=== PATIENT | female | born 1975 | race Caucasian/White ===

== ENCOUNTER → 2019-06-02 13:14 | Outpatient (CLI) | payer OTHER, SELFPAY ==
--- NOTE | ~2019-06-02 | MM_ITS ---
EXAMINATION: MM screening graham BI w bebe HISTORY: Screening mammogram TECHNIQUE: Craniocaudal and mediolateral oblique 3-D tomosynthesis images were obtained and synthetic 2-D images were generated. CAD analysis was submitted and interpreted. COMPARISON: 12/18/2013 bilateral digital screening mammogram BREAST PARENCHYMAL COMPOSITION: There are scattered areas of fibroglandular density. FINDINGS: There is no evidence of suspicious mass, calcification, or architectural distortion to sugg est malignancy in either breast. There has been no suspicious interval change. IMPRESSION: 1. No mammographic evidence of malignancy. 2. Recommend routine screening mammography in one year. BI-RADS Category 1: Negative Reviewed, dictated and finalized at location A.
== END ==
PROVIDERS: PCP Internal Medicine; Visit Provider Internal Medicine
DX: Z12.31 Encounter for screening mammogram for malignant neoplasm of breast (principal)
CPT/HCPCS: 77063; 77067

== ENCOUNTER 2019-07-05 15:08 | Outpatient (CLI) | payer OTHER, SELFPAY ==
[2019-07-05 15:27] LABS: Basophils Percent Auto 0.5 % (0.2-1.2); Eosinophils Absolute Auto 0.1 K/mm3 (0-0.3); Eosinophils Percent Auto 1.3 % (0-4.4); Hematocrit 36.5 % (37.0-47.0); Hemoglobin 11.8 g/dL (12.0-15.0); Immature Granulocyte Absolute 0.04 K/mm3 (0.00-0.031); Immature Granulocyte Percent A 0.5 % (0-0.5); Immature Reticulocyte Fraction 12.3 % (3.0-15.9); Lymphocytes Absolute Auto 2.07 K/mm3 (0.9-3.2); Lymphocytes Percent Auto 24.2 % (18.3-44.2); Mean Corpuscular HGB Conc 32.3 g/dl (32-36); Mean Corpuscular Hemoglobin 29.5 pg (26-34); Mean Corpuscular Volume 91.3 fl (80-100); Mean Platelet Volume 10.2 fl (7.4-10.4); Monocytes Absolute Auto 0.5 K/mm3 (0.1-0.6); Monocytes Percent Auto 6.3 % (2.6-8.5); Neutrophils Absolute Auto 5.8 K/mm3 (1.3-6.7); Neutrophils Percent Auto 67.2 % (45.5-73.1); Platelet Count Result 273 k/mm3 (150-375); Red Cell Distribution Width 15.5 % (11.5-14.5); Reticulocyte Hemoglobin Conten 34.6 pg (28.2-35.7); Reticulocyte Percent 1.77 % (0.7-4.3); Reticulocytes Absolute 0.07 B/L (32.2-175.7); White Blood Count 8.6 K/mm3 (4.5-10.0)
[2019-07-05 16:18] LABS: Iron 49 ug/dL (37-170)
[2019-07-05 16:22] LABS: Blood Urea Nitrogen 14 mg/dL (7-17); Calcium 9.4 mg/dL (8.4-10.2); Carbon Dioxide 24 mmol/L (22-30); Chloride 105 mmol/L (98-107); Estimated Glomerular Filt Rate > 60; Glucose 96 mg/dL (65-105); Potassium 4.6 mmol/L (3.4-5.0); Sodium 138 mmol/L (137-145)
[2019-07-05 16:33] LABS: Percent Iron Saturation 11 % (20-50)
== END 2019-07-05 15:09 | disposition home or self-care (01) ==
LOC: ANHLAB 15:10
PROVIDERS: PCP Internal Medicine; Visit Provider Internal Medicine Hematology & Oncology
DX: D50.0 Iron deficiency anemia secondary to blood loss (chronic) (principal)
CPT/HCPCS: 36415; 80048; 82607; 82728; 83540; 83550; 85025; 85046

== ENCOUNTER 2020-02-22 13:44 | Outpatient (CLI) | payer OTHER, SELFPAY ==
--- NOTE | ~2020-02-22 | US_ITS ---
EXAMINATION: US pelvic complete w TV DATE: 02/22/2020 15:10 INDICATION: Fibroids. Menorrhagia. Enlarged uterus. Comparison:No prior studies for comparison. TECHNIQUE: Multiple transabdominal and endovaginal sonographic images of the pelvis performed. FINDINGS: The uterus measures 15.4 x 10.4 x 11.7 cm. There are multiple ill-defined masses of the tevin bob, consistent with fibroids. Largest discrete fibroid measures 5.5 cm maximum dimension. The endome trial complex measures 1.5 cm. The ovaries are not visualized. There is no free fluid in the pelvis. There are no abnormal masses seen on either side. IMPRESSION: 1. Enlarged uterus containing multiple fibroids. 2: Endometrial thickening measuring 1.5 cm. Reviewed, dictated and finalized at location A. R TREATMENT PLANT REPAIRER
== END 2020-02-22 13:45 ==
PROVIDERS: Visit Provider Obstetrics & Gynecology
DX: D25.9 Leiomyoma of uterus, unspecified (principal); N92.0 Excessive and frequent menstruation with regular cycle
CPT/HCPCS: 76830; 76856

== ENCOUNTER 2020-04-09 00:36 | Outpatient (CLI) | payer OTHER, SELFPAY ==
[2020-04-09 19:18] LABS: SARS-CoV-2 RNA PCR Negative
== END 2020-04-09 00:37 | disposition home or self-care (01) ==
LOC: ANHCOVIDDT 00:36
PROVIDERS: PCP Internal Medicine; Visit Provider Obstetrics & Gynecology
DX: Z01.812 Encounter for preprocedural laboratory examination (principal); Z20.822 Contact with and (suspected) exposure to COVID-19
CPT/HCPCS: C9803; U0003; U0005

== ENCOUNTER 2020-04-10 11:34 | Outpatient (CLI) | payer OTHER, SELFPAY ==
--- NOTE | 2020-04-10 11:35 | ECG_ITS ---
Measurements Intervals [place] Rate: 76 P: 44 UT: 156 QRS: 37 QRSD: 92 T: 0 QT: 369 QTc: 416 Interpretive Statements SINUS RHYTHM DELAYED PRECORDIAL R/S TRANSITION BORDERLINE ST-T WAVE ABNORMALITY- ANT/INF LEADS BASELINE ARTIFACT- I, II, AVR, AVL BORDERLINE ECG Electronically Signed On 04-10-2020 12:05:25 PROJECT RESERVOIR ENGINEER by Ismael Oropeza D.O.
[2020-04-10 12:44] LABS: Hematocrit 36.6 % (37.0-47.0); Hemoglobin 11.6 g/dL (12.0-15.0)
== END 2020-04-10 11:35 | disposition home or self-care (01) ==
LOC: ANHSURGERY 11:35
PROVIDERS: Anesthesiology; PCP Internal Medicine; Visit Provider Obstetrics & Gynecology
DX: Z01.818 Encounter for other preprocedural examination (principal); D25.9 Leiomyoma of uterus, unspecified; D64.9 Anemia, unspecified; E78.00 Pure hypercholesterolemia, unspecified
CPT/HCPCS: 36415; 85014; 85018; 86850; 86900; 86901; 93005

== ENCOUNTER 2020-04-12 09:10 | Inpatient (IN) | payer OTHER, SELFPAY ==
[2020-04-09 14:56] VITALS: BMI 43.8
[2020-04-12] VITALS (16 sets, daily range): BP systolic 123–145; BP diastolic 61–88; PULSE 59–81; RESP 12–29; TEMP 36.2–37.1; O2SAT 94–100
--- NOTE | 2020-04-12 10:13 | PM.IMHP ---
H&P: HPI History of Present Illness Date/Time: 04/12/20 10:13 Chief Complaint: heavy cycles and pain Narrative: Amaris Ravi is a 44 year old female with history of heavy menstrual cycle. Patient underwent ultrasound consistent with muultiple uterine fibroids. Patient alos reportts increased pressure and pain in pelvis. Patient s/pbladder sling and vaginal repain in 11/25. PMFSH Past Medical History Medical History (Updated 04/12/20 @ 10:19 by Jose Taylor MD) Fibroids Surgical History Surgical History (Updated 04/12/20 @ 10:18 by Jose Taylor MD) History of bilateral tubal ligation History of bladder suspension procedure Social History Social History Smoking packs per day: 1 Smoking cigarettes per day: 20.0 Years smoked: 13 Smoking pack-years: 13.00 Smoking status: Current every day smoker Tobacco type: cigarettes Living arrangements: with family Spiritual care concerns: No Meds Home Medications and Allergies Home Medications Medication Instructions Recorded Confirmed Type ferrous sulfate 325 mg PO DAILY 04/09/20 04/09/20 History loratadine 10 mg PO DAILY PRN 04/09/20 04/09/20 History rosuvastatin 20 mg PO HS 04/09/20 04/09/20 History Allergies Allergy/AdvReac Type Severity Reaction Status Date / Time No Known Allergies Allergy Unknown Verified 04/09/20 14:54 Exam Const: General: cooperative Resp: Effort & Inspection: normal respiratory effort GI: Inspection: normal to inspection Other: palpable uterus above pubic bone Assessment and Plan Assessment and plan (1) History of bladder suspension procedure: Code(s): Z98.890 - Other specified postprocedural states; Z87.448 - Personal history of other diseases of urinary system Status: Acute Assessment and Plan: Scheduled for a total abdiminal hysterectomy. Risk and benefits reviewd with patient. (2) History of bilateral tubal ligation: Code(s): Z98.51 - Tubal ligation status Status: Acute (3) Fibroids: Code(s): D21.9 - Benign neoplasm of connective and other soft tissue, unspecified Status: Acute
[2020-04-12] MEDS: LACTATED RINGERS 1,000 ML 30 ML IV CONT ×3 (10:57→14:17)
--- NOTE | 2020-04-12 11:39 | WPDANESEPPF ---
Anes - Initial Pre Proc Eval Procedure: Operation Date: 04/12/20 12:00 Proposed Procedures p Total Abdominal Hysterectomy - Jose Taylor MD Date/Time: 04/12/20 11:39 Surgeon: Jose Taylor MD Pre Op Diagnosis: Fibroids Patient Data Age: 44 Gender: F Height: 5 ft 4 in Weight: 115.9 kg Allergies Allergy/AdvReac Type Severity Reaction Status Date / Time No Known Allergies Allergy Unknown Verified 04/09/20 14:54 Home Medications Medication Instructions Recorded Confirmed Type ferrous sulfate 325 mg PO DAILY 04/09/20 04/09/20 History loratadine 10 mg PO DAILY PRN 04/09/20 04/09/20 History rosuvastatin 20 mg PO HS 04/09/20 04/09/20 History Patient hx anesthesia problems: none Family hx anesthesia problems: none PMFSH Past Medical History Medical History (Updated 04/12/20 @ 11:39 by Alessandro Daniel MD) Fibroids Hyperlipidemia Hypertension Surgical History Surgical History (Updated 04/12/20 @ 10:18 by Jose Taylor MD) History of bilateral tubal ligation History of bladder suspension procedure Social History Social History Smoking packs per day: 1 Smoking cigarettes per day: 20.0 Years smoked: 13 Smoking pack-years: 13.00 Smoking status: Current every day smoker Tobacco type: cigarettes Living arrangements: with family Spiritual care concerns: No Anes - Eval Final PreProcedure Day of Procedure 04/12/20 11:39 Patient weight: morbidly obese Heart: regular rate and rhythm Lungs: clear to auscultation Airway: Mallampati scale class III Neurological: alert and oriented Last oral intake: >/= 8 hours ASA classification: III Emergent: no Anesthetic plan: proceed Anesthesia type and monitoring: general ETT and standard monitoring Informed Consent: The patient's anesthetic plan and its attendant risks and benefits were discussed with the patient/family/POA. Questions were solicited and answers provided to the satisfaction of the patient/family/POA.
--- NOTE | 2020-04-12 12:06 | WPDHPUPDATE1 ---
History and Physical Update Update Date/Time: 04/12/20 12:06 History and Physical has been reviewed, including an updated exam of the patient. There are NO changes in the patient's condition. Risks, benefits, and alternatives have been discussed and questions answered. Patient agrees to proceed with procedure.
[2020-04-12] MEDS: ceFAZolin 2 GM/D5W 50 ML 2 GM/50 ML BAG IVPB (12:11)
--- NOTE | 2020-04-12 14:27 | PM.PROC ---
Procedure Note - Detailed Date of procedure: 04/12/20 Pre-op diagnosis: Fibroids Post-op diagnosis: same Procedure performed: Total abdominal hysterectomy Description of procedure: Patient was taken to the operating room with IV running. She was prepped draped in a normal sterile fashion and placed in a supine position. A Pfannenstiel skin incision was made with a scalpel carried down to underlying layer of fascia. This fascia incision was then extended bilaterally with Thomas scissors. Superior aspect of the incision was grasped with Raghu clamps and elevated off the rectus muscles. The inferior aspect of incision was grasped Raghu clamps and elevated and dissected off the rectus muscles. The rectus muscles were in the midline the peritoneum was grasped with the P on into sharply with Metzenbaum scissors and extended bluntly. The uterus was noted to be enlarged with multiple fibroids anteriorly and posteriorly grossly normal tubes and ovary. The bowel were packed away with moist laparotomy sponges. And the bowel for retractor was placed into the abdomen the bladder blade was also inserted. The round ligaments were transected and suture ligated with 0 Vicryl suture bilaterally. The bladder flap was created with Metzenbaum scissors and pickups. Superior portion of the uterus was clamped with a single-tooth tenaculum for better traction and visualization. The uterine ovarian ligaments were transected and suture ligated with 0 Vicryl suture bilaterally. The uterine arteries were transected and suture ligated bilaterally. The uterosacral and cardinal ligaments were transected and suture ligated bilaterally. The uterus was amputated for better visualization the remaining tissue was transected and suture ligated the cervix was removed with Babinski scissors. The vaginal cuff was closed with 0 Vicryl suture and transfixed to the uterosacral and cardinal ligaments bilaterally. The abdomen was irrigated copiously a mild bleeding noted at the vaginal cuff along the bladder reflection and hemogram was applied to this area. Hemostasis was assured all instruments were removed from the abdomen and sponges were removed from the abdomen the pedicles were examined and noted to be hemostatic. The muscles were examined for hemostasis and the fascia was closed with 0 Vicryl suture in a running fashion. Subcutaneous tissue was irrigated and the skin was closed with 4 Vicryl on Tate needle. Sponge lap and needle counts were correct x2 patient tolerated the procedure well. Anesthesia: GETA Surgeon: Jose Taylor MD Estimated blood loss (mL): 250 Urine output (mL): 100 Drains: Yes Packing: No Pathology: yes Complications: None Condition: stable Disposition: PACU Findings: enlarged uterus multiple uterine fibroids. normal ovaries.
[2020-04-12] MEDS: fentaNYL CITRATE INJ (*CRX) 100 MCG/2 ML VIAL 25 MCG IV PUSH ×8 (14:40→15:30)
[2020-04-12] MEDS: DEXTROSE 5%/0.45% SOD CHL 1,000 ML 125 ML IV CONT (16:06)
--- NOTE | 2020-04-12 16:29 | OBPPTRN ---
Addendum entered by Patricia Foster RN 04/12/20 16:30: @ [id number] Original Note: Patient transferred to post room #289 via bed. Oriented to unit, room, information board, and security measures. Patient verbalizes understanding.
[2020-04-12] MEDS: KETOROLAC 30 MG/ML VIAL (*BKC) IV PUSH (17:27)
[2020-04-12] MEDS: MORPHINE SULFATE (*CRX) 4 MG/ML INJ IV PUSH (18:04)
[2020-04-12] MEDS: HYDROcodone/acetaminophen (*CRX) 5-325 MG TABLET 1 TAB PO (20:55)
[2020-04-12] MEDS: SENNA/DOCUSATE SODIUM TABLET 2 TAB PO (20:56)
[2020-04-12] MEDS: METOCLOPRAMIDE HCL INJ 10 MG/2 ML VIAL IV PUSH (22:21)
[2020-04-13] MEDS: DEXTROSE 5%/0.45% SOD CHL 1,000 ML 125 ML IV CONT (00:09)
[2020-04-13 00:10] VITALS: BP 140/76; PULSE 76; RESP 16; TEMP 36.8; O2SAT 99
[2020-04-13] MEDS: HYDROcodone/acetaminophen (*CRX) 5-325 MG TABLET 1 TAB PO (00:10)
[2020-04-13] MEDS: KETOROLAC 30 MG/ML VIAL (*BKC) IV PUSH ×2 (02:16→09:15)
[2020-04-13] MEDS: oxyCODONE/ACETAMINOPHEN (*CRX) 5-325 MG TABLET 1 TABLET PO ×4 (02:17→22:45)
[2020-04-13] MEDS: oxyCODONE HCL (*CRX) 5 MG TAB IR PO ×4 (02:18→22:44)
[2020-04-13 04:10] VITALS: BP 128/68; PULSE 76; PULSE 86; RESP 16; TEMP 37; O2SAT 97; O2SAT 99
--- NOTE | 2020-04-13 08:42 | WPDANESPN ---
Anes - Prog Note Post-Op Date/Time: 04/13/20 08:42 Cardiovascular status: normal Respiratory status: normal Airway patency: baseline Mental status: baseline Post-Op hydration status: normal Vital Signs: Last Vital Signs Temp 37.0 C 04/13/20 04:10 Pulse 86 04/13/20 04:10 Resp 16 04/13/20 04:10 BP 128/68 04/13/20 04:10 Pulse Ox 99 04/13/20 04:10 Pain Score (VAS): no complaints I/O: Intake & Output 04/12/20 04/13/20 04/13/20 23:59 07:59 15:59 Intake Total 1750 Output Total 1150 Balance 600 Post-procedural complaints: none Patient Feedback: Patient satisfied with anesthetic care.
[2020-04-13] MEDS: FERROUS SULFATE 324 MG TABLET PO (09:17)
[2020-04-13] MEDS: LORATADINE 10 MG TABLET PO (09:17)
[2020-04-13 09:30] VITALS: BP 120/75; PULSE 72; RESP 20; TEMP 36.9; O2SAT 97
[2020-04-13] MEDS: IBUPROFEN 600 MG TABLET PO (17:45)
[2020-04-13 19:05] VITALS: BP 128/74; PULSE 87; RESP 20; TEMP 36.8; O2SAT 98
[2020-04-13] MEDS: SENNA/DOCUSATE SODIUM TABLET 2 TAB PO (20:43)
--- NOTE | 2020-04-14 00:27 | P.PNOB_ITS ---
LIFT SLAB OPERATOR - A/P Assessment and plan (1) S/P ISABELA (total abdominal hysterectomy): Code(s): Z90.710 - Acquired absence of both cervix and uterus Status: Acute Assessment and Plan: continue with pp care. Postoperative Procedures: Procedures Operation Date: 04/12/20 12:00 Actual Procedures Side Surgeon p Total Abdominal Hysterectomy Not Applicable Jose Taylor MD Time Spent With Patient Time: Total time spent is greater than 50% in coordination of care (as documented) at patient's floor/unit and/or counseling patient: Time with patient: 15 - 25 minutes LIFT SLAB OPERATOR- PN:Subj Post-Op Subjective Date/time seen: 04/13/20 0600 Patient reports pain improved with new pain medications tolerating well Exam GI: Other: inc cdi soft AT LIFT SLAB OPERATOR - PN: Obj Data Vital Signs Vital Signs: Vital Signs - 24 hr 04/13/20 04:10 04/13/20 09:30 04/13/20 19:05 Temperature 37.0 C 36.9 C 36.8 C Pulse Rate 76 72 87 Respiratory Rate 16 20 20 Blood Pressure 128/68 120/75 128/74 Pulse Oximetry 99 97 98 Intake/Output Intake/Output: Intake & Output 04/11/20 04/12/20 04/13/20 04/14/20 23:59 23:59 23:59 23:59 Intake Total 300 1990 Output Total 190 1400 Balance 110 590 Meds/Results Medications: Active Medications Generic Name Dose Route Start Last Admin Trade Name Freq PRN Reason Stop Dose Admin Hydrocodone Bitart/Acetaminophen 1 tab 04/12/20 14:40 04/13/20 00:10 Hydrocodone/Acetaminophen (*Crx) 5-325 Mg Tablet PO 1 tab Q3H PRN Administration Pain Rated 5 or Less Ferrous Sulfate 324 mg 04/13/20 08:00 04/13/20 09:17 Ferrous Sulfate 324 Mg Tablet PO 324 mg DAILY@0800 ANNALEE Administration Ibuprofen 600 mg 04/13/20 17:04 04/13/20 17:45 Ibuprofen 600 Mg Tablet PO 600 mg Q6H PRN Administration Cramping Loratadine 10 mg 04/13/20 09:00 04/13/20 09:17 Loratadine 10 Mg Tablet PO 10 mg QAM ANNALEE Administration Metoclopramide HCl 10 mg 04/12/20 14:40 04/12/20 22:21 Metoclopramide Hcl Inj 10 Mg/2 Ml Vial IV PUSH 10 mg Q6H PRN Administration Nausea Ondansetron HCl 4 mg 04/12/20 14:40 Ondansetron Inj 4 Mg/2 Ml Vial IV PUSH Q6H PRN Nausea Oxycodone HCl 5 mg 04/13/20 02:08 04/13/20 22:44 Oxycodone Hcl (*Crx) 5 Mg Tab Ir PO 5 mg Q6H PRN Administration Pain Rated 7-10 Oxycodone/Acetaminophen 1 tablet 04/13/20 02:08 04/13/20 22:45 Oxycodone/Acetaminophen (*Crx) 5-325 Mg Tablet PO 1 tablet Q6H PRN Administration Pain Rated 7-10 Senna/Docusate Sodium 2 tab 04/12/20 21:00 04/13/20 20:43 Senna/Docusate Sodium Tablet PO 2 tab HS ANNALEE Administration
[2020-04-14] MEDS: oxyCODONE/ACETAMINOPHEN (*CRX) 5-325 MG TABLET 1 TABLET PO ×2 (04:33→10:32)
[2020-04-14] MEDS: oxyCODONE HCL (*CRX) 5 MG TAB IR PO ×2 (04:33→10:32)
[2020-04-14] MEDS: FERROUS SULFATE 324 MG TABLET PO (07:29)
[2020-04-14] MEDS: LORATADINE 10 MG TABLET PO (07:29)
[2020-04-14 08:00] VITALS: BP 142/90; PULSE 82; RESP 18; TEMP 36.8
[2020-04-14] MEDS: IBUPROFEN 600 MG TABLET PO (10:31)
[2020-04-14 12:32] VITALS: BP 125/70; PULSE 77
--- NOTE | 2020-04-14 13:50 | PC.NURSE ---
Discharge instructions given to patient and discussed along with an abdominal binder. Showed patient how to abdominal binder and helped her put it on.
--- NOTE | 2020-04-29 11:12 | PM.DS ---
DS: Admitting Diagnosis Admitting Diagnosis Admitting Diagnosis: fibroids DS: Discharge Diagnosis Discharge Diagnosis (1) S/P ISABELA (total abdominal hysterectomy): Code(s): Z90.710 - Acquired absence of both cervix and uterus Status: Acute DS: Summary Hospital Course Reason for hospitalization: Abdominal hysterectomy for Fibroids Hospital Course: Patient is a multiparous patient with a long history of heavy bleeding. She was admitted for a Abdominal hysterectomy for uterine fibroids. hospital course uncomplicated Time spent discussing smoking cessation with patient: more than 10 minutes Time Spent with Patient Time attestation: Total time spent providing and/or coordinating discharge services: DS: Data Data Completed and Pending Completed studies during hospitalization: Pending at discharge 04/12/20 13:33 Surgical [PTH] Routine Discharge Plan Discharge Attending physician on discharge: Jose Taylor Discharging Clinician: Jose Taylor Patient Disposition: Home, Self-Care Activity: july shower Diet: regular Discharge Instructions: Call the office for follow up appointment Patient Instructions: Antibiotic Form, Hysterectomy (DC) Stand Alone Forms: General Discharge Information Follow-up/Referrals: Jose Taylor MD [Physician] - Discharge Medications: New oxycodone-acetaminophen 5-325 mg Tablet 1 tablet PO Q6H PRN (Reason: Pain Rated 7-10) Qty: 20 RF: 0 Continued ferrous sulfate 325 mg (65 mg iron) Tablet 325 mg PO DAILY RF: 0 loratadine 10 mg tablet 10 mg PO DAILY PRN (Reason: Allergy Symptoms) RF: 0 rosuvastatin 20 mg tablet 20 mg PO HS RF: 0 Date of admission: 04/12/20 09:10 Primary Care Provider: Aj,Carmela Admitting Provider: Jose Taylor Attending physician on admission: Jose Taylor Condition: Stable
== END 2020-04-14 13:55 | disposition home or self-care (01) | DRG 742 ==
LOC: ANHSURGERY 10:03 → ANHOB2 04-14 13:18
PROVIDERS: Admitting Provider Obstetrics & Gynecology; PCP Internal Medicine; Visit Provider Obstetrics & Gynecology
PROC: 0UT94ZZ Resection of Uterus, Percutaneous Endoscopic Approach (ICD-10-PCS; principal; 2020-04-12 12:00)
DX: D25.9 Leiomyoma of uterus, unspecified (principal); Z68.41 Body mass index [BMI] 40.0-44.9, adult; I10 Essential (primary) hypertension; E78.5 Hyperlipidemia, unspecified; F17.210 Nicotine dependence, cigarettes, uncomplicated; E66.01 Morbid (severe) obesity due to excess calories; Z98.51 Tubal ligation status
CPT/HCPCS: 36415; 85014; 85018; 86850; 86900; 86901; 88307; 93005; A9270; C9803; J0690; J1100; J1885; J2250; J2270; J2405; J2704; J2710; J2765; J3010; J7120; U0003; U0005

== ENCOUNTER 2023-01-15 10:25 | Emergency (ER) | payer OTHER, SELFPAY ==
--- NOTE | ~2023-01-15 | CT_ITS ---
CT scan of the Neck Technique: 2.5 mm axial scans were obtained through the neck after intravenous administration of 75 c c Omnipaque 350. Coronal and sagittal reconstructions of the neck were obtained. Dose reduction techn ique was used on this scan by utilizing automated exposure control and iterative reconstruction techn ique. The dose-length product (DLP) was 579.44 mGy-cm. Clinical History: Right peritonsillar abscess Findings: There are mildly enlarged bilateral level 2 cervical lymph nodes, presumably reactive. Parapharyngeal spaces appear normal bilaterally. The parotid and submandibular glands appear normal. The pharyngeal mucosal spaces appear normal. No soft tissue masses are seen in the neck. The thyroid gland appears normal. Images of the lung apices reveal no abnormalities. Impression: No peritonsillar abscess or acute inflammatory change evident. Mildly prominent bilateral level 2 lymph nodes, presumably reactive. Reviewed, dictated and finalized at [facility] [place]. ERS COMPENSATION SPECIALIST Impression: No peritonsillar abscess or acute inflammatory change evident. Mildly prominent bilateral level 2 lymph nodes, presumably reactive.
[2023-01-15 10:27] VITALS: BP 158/97; PULSE 83; RESP 18; TEMP 36.2; O2SAT 100
--- NOTE | 2023-01-15 11:39 | ED.URI ---
HPI - URI/Sore Throat General Chief Complaint: Upper Respiratory Infection <Kenisha Yo PA-C - Last Filed: 01/15/23 14:23> Stated Complaint: sore throat <NIKUNJ Johansen Last Filed: 01/15/23 14:23> Time Seen by Provider: 01/15/23 11:04 <NIKUNJ Johansen Last Filed: 01/15/23 14:23> History of Present Illness HPI Narrative: 47-year-old female reports for evaluation for sore throat x3 days. Patient states her throat is worse with swallowing and hurts on the sides of her anterior neck as well. She is also reporting bilateral otalgia, intermittent subjective fevers, and mild cough and congestion. States she went her PCP day after symptoms started and was sent to [facility] ED for a strep test. She had a negative strep, COVID and flu test at that time and was started on Augmentin. She has been taking Augmentin twice a day as directed and has not missed any doses. She states since having the antibiotic, her symptoms have worsened which prompted her to come to the ED today. She reports nausea but no emesis. Denies abdominal pain, chest pain or shortness of breath, rash. Denies known sick contacts. <NIKUNJ Johansen Last Filed: 01/15/23 14:23> Related Data Home Medications: Home Medications Medication Instructions Recorded Confirmed ferrous sulfate 325 mg (65 mg 325 mg PO DAILY 04/09/20 04/12/20 iron) tablet loratadine 10 mg tablet 10 mg PO DAILY PRN Allergy Symptoms 04/09/20 04/12/20 rosuvastatin 20 mg tablet 20 mg PO HS 04/09/20 04/12/20 <NIKUNJ Johansen Last Filed: 01/15/23 14:23> Allergies/Adverse Reactions: Allergies Allergy/AdvReac Type Severity Reaction Status Date / Time No Known Allergies Allergy Unknown Verified 04/09/20 14:54 <NIKUNJ Johansen Last Filed: 01/15/23 14:23> Review of Systems Review of Systems: CONSTITUTIONAL: Denies fever, chills EYES: Denies visual changes, redness, or discharge. ENT: See HPI CARDIOVASCULAR: Denies chest pain, palpitations, or edema. RESPIRATORY: See HPI GASTROINTESTINAL: Denies abdominal pain, nausea, vomiting, or diarrhea. GENITOURINARY: Denies dysuria or hematuria. SKIN: Denies rash or itching. MUSCULOSKELETAL: Denies back pain, joint pain, or myalgia. NEUROLOGIC: Denies headache, numbness, dizziness, or weakness. PSYCHIATRIC: Denies anxiety or depression. <Kenisha Yo PA-C - Last Filed: 01/15/23 14:23> [facility] Past Medical History Medical History: Medical History Fibroids Hyperlipidemia Hypertension <Kenisha Yo PA-C - Last Filed: 01/15/23 14:23> Surgical History Surgical History: Surgical History History of bilateral tubal ligation History of bladder suspension procedure S/P ISABELA (total abdominal hysterectomy) <Kenisha Yo PA-C - Last Filed: 01/15/23 14:23> Social History Social History: Social History Smoking packs per day: 1 Smoking cigarettes per day: 20.0 Years smoked: 13 Smoking pack-years: 13.00 Smoking status: Current every day smoker Tobacco type: cigarettes Living arrangements: with family Spiritual care concerns: No <Kenisha Yo PA-C - Last Filed: 01/15/23 14:23> Exam Narrative: GENERAL: In no acute distress. Patient resting comfortably in exam bed. Ill-appearing. HEAD: Normocephalic EYES: PERRLA, EOMI ENT: Nares clear. Mucous membranes moist. Tonsils and posterior pharynx erythematous. No exudates. Right tonsil larger than left tonsil. Uvula is midline. Patient tolerating secretions. No trismus. NECK: Supple. CHEST: No respiratory distress. Clear to auscultation, no adventitious breath sounds. HEART: Regular rate and rhythm. No murmur heard. Normal peripheral pulses. ABDOMEN: Soft, nontender, normal active bowel
--- NOTE | 2023-01-15 12:10 | PC.NURSE ---
RN to bedside to start IV, obtain labs, and give meds. Pt with hx poor vasculature, reports they always have to get the IV specialist to use the machine on me . This RN looked for possible IV location, unsuccessful. IV therapy called, waiting line placement.
[2023-01-15 12:42] LABS: Estimated Glomerular Filt Rate > 60
[2023-01-15 12:50] LABS: Strep Group A RT-PCR NOT DETECTED (Negative)
[2023-01-15] MEDS: SODIUM CHLORIDE 0.9% IV 1,000 ML 999 ML IV CONT (12:58)
[2023-01-15] MEDS: ONDANSETRON INJ 4 MG/2 ML VIAL IV PUSH (12:58)
[2023-01-15 13:02] LABS: Influenza A QL RT-PCR Negative (Negative); Influenza B QL RT-PCR Negative (Negative); SARS-CoV-2 RNA PCR Negative (Negative)
--- NOTE | 2023-01-15 13:06 | PC.NURSE ---
Medications given per MAR. IV fluids infusing. Pt updated, labs sent. Call light in reach.
[2023-01-15 13:13] LABS: Basophils Absolute Auto 0.1 K/mm3 (0.0-0.1); Basophils Percent Auto 0.6 % (0.2-1.2); Eosinophils Absolute Auto 0.2 K/mm3 (0-0.3); Eosinophils Percent Auto 2.3 % (0-4.4); Hematocrit 44.7 % (37.0-47.0); Hemoglobin 14.4 g/dL (12.0-15.0); Immature Granulocyte Absolute 0.04 K/mm3 (0.00-0.031); Immature Granulocyte Percent A 0.4 % (0-0.5); Lymphocytes Absolute Auto 2.01 K/mm3 (0.9-3.2); Mean Corpuscular HGB Conc 32.2 g/dl (32-36); Mean Corpuscular Hemoglobin 30.6 pg (26-34); Mean Corpuscular Volume 95.1 fl (80-100); Mean Platelet Volume 10.4 fl (7.4-10.4); Monocytes Absolute Auto 0.9 K/mm3 (0.1-0.6); Neutrophils Absolute Auto 6.8 K/mm3 (1.3-6.7); Neutrophils Percent Auto 67.7 % (45.5-73.1); Platelet Count Result 283 k/mm3 (150-375); Red Cell Distribution Width 12.7 % (11.5-14.5)
[2023-01-15 13:22] LABS: Alanine Aminotransferase 95 U/L (6-35); Albumin Level 4.3 g/dL (3.5-5.1); Alkaline Phosphatase 89 U/L (38-126); Anion Gap 11 mmol/L (8-16); Aspartate Amino Transferase 47 U/L (14-36); Bilirubin,Total 0.9 mg/dL (0.2-1.3); Blood Urea Nitrogen 8 mg/dL (7-17); Calcium 9.4 mg/dL (8.4-10.2); Carbon Dioxide 26 mmol/L (22-30); Chloride 101 mmol/L (98-107); Estimated Glomerular Filt Rate > 60; Glucose 96 mg/dL (65-110); Potassium 4.5 mmol/L (3.4-5.0); Sodium 138 mmol/L (137-145)
[2023-01-15 14:11] LABS: Monoscreen Negative (Negative)
[2023-01-15 14:12] LABS: Negative Monotest Control Negative (Negative); Positive Monotest Control Positive (Positive)
--- NOTE | 2023-01-15 14:40 | PC.NURSE ---
Pt reports she does not want the ordered toradol, and that she has been taking ibuprofen at home routinely. Provider aware. IV removed for patient discharge.
[2023-01-15 14:53] VITALS: BP 147/90; PULSE 79; RESP 16; O2SAT 100
== END 2023-01-15 14:55 | disposition home or self-care (01) ==
PROVIDERS: Emergency Provider Physician Assistant; PCP Internal Medicine
DX: J02.9 Acute pharyngitis, unspecified (principal); J04.0 Acute laryngitis; E78.5 Hyperlipidemia, unspecified; I10 Essential (primary) hypertension; F17.210 Nicotine dependence, cigarettes, uncomplicated; Z20.822 Contact with and (suspected) exposure to COVID-19
CPT/HCPCS: 70491; 80053; 85025; 86308; 87636; 87651; 96361; 96374; 96375; 99284; J1100; J2405; J7030; Q9967

== ENCOUNTER 2024-09-04 09:49 | Emergency (ER) | payer OTHER, SELFPAY ==
--- NOTE | 2024-09-04 09:55 | ED.URI ---
HPI - URI/Sore Throat General Chief Complaint: Upper Respiratory Infection Stated Complaint: Sore Throat/Cough Time Seen by Provider: 09/04/24 10:08 Source: patient Mode of arrival: ambulatory Limitations: no limitations History of Present Illness HPI Narrative: Amaris is a 48-year-old female patient presenting to the clinic today with complaints of sore throat, ear pain, cough, and congestion x 1 day. She reports she started feeling ill on Wednesday night and symptoms worsened yesterday. Has felt feverish but has not checked her temperature. Has been taking Robitussin and Tessalon Perles for her symptoms. Related Data Home Medications ?Medication ?Instructions ?Recorded ?Confirmed ?Last Taken ?Type No Home Medications 09/04/24 09/04/24 Unknown History Allergies Allergy/AdvReac Type Severity Reaction Status Date / Time No Known Allergies Allergy Unknown Verified 09/04/24 10:19 Review of Systems Review of Systems: Pertinent positives per HPI. Patient denies any fever, chills, rash, headache, visual changes, dizziness, cough, shortness of breath, chest pain, palpitations, nausea, vomiting, diarrhea, constipation, abdominal pain, or any urinary issues. [facility] Past Medical History Medical History Hyperlipidemia Hypertension Fibroids Surgical History Surgical History S/P ISABELA (total abdominal hysterectomy) History of bladder suspension procedure History of bilateral tubal ligation Social History Social History Smoking packs per day: 1 Smoking cigarettes per day: 20.0 Years smoked: 13 Smoking pack-years: 13.00 Smoking status: Current every day smoker Tobacco type: cigarettes Living arrangements: with family Spiritual care concerns: No Comments At the time of my signature, I reviewed and agree with the nursing past medical, surgical, social, and family history. There is no relevant family history pertinent to the patient complaint. Exam Narrative: General: Well-developed, well nourished, in no apparent distress Head: Normocephalic, atraumatic Eyes: Pupils equally round and reactive to light bilaterally, EOM intact, sclera and conjunctive clear, no discharge, lids normal Ears: TMs intact and congested, ear canals clear, no drainage, grossly hearing normal. Nose: Nares patent, clear nasal discharge, moderate inflammation, no sinus tenderness. Mouth: Oral pharynx red without lesions or masses, good dentition, MMM. Postnasal drip Neck: Supple, trachea midline, no enlargement of anterior or posterior cervical nodes, no thyroid masses or goiter palpable. Cardio: Regular rate and rhythm, s1 and s2 normal, no murmur appreciated. Resp: Clear to auscultation bilaterally, no rhonchi, rales, wheezing or rubs Course Course Emergency Course: Portions of this record may have been created with voice recognition software. Level of Care: Express Care Visit Vital Signs Vital signs: Vital Signs Temperature 36.8 C 09/04/24 10:01 Pulse Rate 82 09/04/24 10:01 Respiratory Rate 20 09/04/24 10:01 Blood Pressure 144/89 H 09/04/24 10:01 Pulse Oximetry 100 09/04/24 10:01 Oxygen Delivery Room Air 09/04/24 10:01 Temperature 36.8 C 09/04/24 10:01 Pulse Rate 82 09/04/24 10:01 Respiratory Rate 20 09/04/24 10:01 Blood Pressure 144/89 H 09/04/24 10:01 Pulse Oximetry 100 09/04/24 10:01 Oxygen Delivery Room Air 09/04/24 10:01 Vital signs reviewed MDM - URI/Sore Throat MDM Narrative Medical decision making narrative: At the time of visit patient is resting comfortably on the exam table. Patient appears to be nontoxic. Labs: COVID, influenza, and strep test were performed. All testing was negative. We will send strep for culture. Plan: I suspect patient has URI/pharyngitis. Supportive measures were discussed with the patient and they voiced understanding discharge instructions and agrees to treatment plan. Return precautions reviewed Differential Diagnosis Differential diagnosis: Likely upper respiratory infection, otitis media, sinusitis, viral infection, bronchitis, influenza, pharyngitis and other (COVID) Lab Data Labs: Lab Results 09/04/24 09/04/24 Range/Units 10:17 10:29 POC Grp A Strep Screen Negative Negative (Negative) Discharge Plan Discharge Clinical Impression: Upper respiratory infection Qualifiers: URI type: unspecified URI Qualified Code(s): J06.9 - Acute upper respiratory infection, unspecified Pharyngitis Qualifiers: Pharyngitis/tonsillitis etiology: unspecified etiology Qualified Code(s): J02.9 - Acute pharyngitis, unspecified Patient Disposition: Home Condition: Stable Instructions: Antibiotic Form, Pharyngitis (ED), Cold Symptoms (ED) Additional Instructions: COVID, influenza, and strep test were all negative. We will send strep for culture. May continue Robitussin as needed for cough May take DayQuil/NyQuil for cold/flu symptoms Increase fluids and stay well hydrated Tylenol/motrin for pain/fever Flonase and OTC antihistamines as directed Vicks vapor rub to open sinuses Sinus rinses for congestion Cepacol spray, cough drops, throat lozenges, warm tea with honey/lemon, gargle salt water to soothe throat BRAT diet for diarrhea Clear liquids x 24 hours then advance as tolerated for nausea/vomiting Go to the ED if you develop a worsening in your condition- high fever not controlled by Tylenol or Motrin, dehydration, weakness, lethargy, shortness of breath, or chest pain. Follow up with your PCP in 3-5 days if symptoms persist. Patient Language: Hebrew Prescriptions: No Action No Home Medications Follow-up/Referrals: Aj,MD Carmela [Primary Care Provider] - Stand Alone Forms: Work/School Release IP Time of Disposition: 10:35 Quality NIHSS Nursing Documentation ED NIHSS nursing documentation: reviewed/agree
[2024-09-04 10:01] VITALS: BP 144/89; PULSE 82; RESP 20; TEMP 36.8; O2SAT 100
[2024-09-04 10:31] LABS: EDSTREPNEGPOS1 Negative (Negative)
[2024-09-04 10:31] LABS: EDSTREPNEGPOS1 Negative (Negative)
[2024-09-04 10:40] LABS: EDCOVIDSCREEN Negative (Negative); EDINFLUASCREEN Negative (Negative); EDINFLUBSCREEN Negative (Negative); EDSTREPNEGPOS1 Negative (Negative)
== END 2024-09-04 10:40 | disposition home or self-care (01) ==
PROVIDERS: Emergency Provider Nurse Practitioner Family; PCP Internal Medicine
DX: J06.9 Acute upper respiratory infection, unspecified (principal); J02.9 Acute pharyngitis, unspecified; Z20.822 Contact with and (suspected) exposure to COVID-19; F17.210 Nicotine dependence, cigarettes, uncomplicated; I10 Essential (primary) hypertension; E78.5 Hyperlipidemia, unspecified
CPT/HCPCS: 87081; 87426; 87804; 87880; 99213; G0463